=== PATIENT | male | born 1995 | race African-American/Black ===

== ENCOUNTER → 2017-01-27 | Outpatient (CLI) | payer BC ==
--- NOTE | 2017-01-28 08:53 | RAD ---
Indication: Glomerular disorder. Nephrotic syndrome. Urinary retention. Technique: Renal ultrasound was performed. No comparison is available. Findings: The right kidney measures at least 12.3 cm in length and the left 12.9 cm. Renal cortical echogenicity is increased, renal cortical thickness is within normal limits. There is no hydronephrosis or renal mass. Bladder is normal in appearance with both urine jets documented. Prevoid bladder volume is 237 cc with post void residual of 9 cc. Impression: Renal cortical echogenicity is diffusely increased bilaterally, nonspecific, can be a finding of medical renal disease
== END | disposition home or self-care (01) ==
LOC: US 14:30
PROVIDERS: ATTEND Nurse Practitioner Family
DX: N28.9 Disorder of kidney and ureter, unspecified (principal); N08 Glomerular disorders in diseases classified elsewhere; N04.9 Nephrotic syndrome with unspecified morphologic changes; R33.9 Retention of urine, unspecified; N39.0 Urinary tract infection, site not specified; R10.33 Periumbilical pain; R14.0 Abdominal distension (gaseous); R30.0 Dysuria; R31.9 Hematuria, unspecified
CPT/HCPCS: 76770